=== PATIENT | male | born 1985 | race Caucasian/White ===

== ENCOUNTER 2025-06-26 13:40 | Emergency (ER) | payer BC, SELFPAY ==
--- OUTSIDE RECORDS SUMMARY | 2015-02-18 12:20 | XMS_ITS | Continuity of Care Document ---
Author Organization [facility] Address [address] [facility] [address] [place] [address] Phone Care Team Providers Care Day Treatment Clinician/Art Therapist Name Role Phone Payton Zuniga Unavailable Unavailable Procedures Procedure Date THERAPEUTIC EXERCISES MANUAL THERAPY FUNC ACTIVITY HOT/COLD PACK PT RE-EVALUATION THERAPEUTIC EXERCISES MANUAL THERAPY FUNC ACTIVITY HOT/COLD PACK THERAPEUTIC EXERCISES MANUAL THERAPY FUNC ACTIVITY HOT/COLD PACK PT EVALUATION THERAPEUTIC EXERCISES MANUAL THERAPY FUNC ACTIVITY HOT/COLD PACK Advance Directives Directive Yes / No Effective Date File Name No Information Encounters Encounter Description Practice Location Reason(s) For Visit Diagnoses Date Provider Providers Copied on Encounter [facility], [id number], tel:[phone] [facility] No Information Shamika Cain. [address] [facility] [address], [place], [facility] [place], [place]. tel:[phone] [facility], [address], [id number], tel:[phone] [facility] No Information Esperanza De La Rosa. [address] [facility] [address], [place], [facility] [place], [place]. tel:[phone], [place], [place], [id number], tel:[phone] [facility] No Information Archer Leana. [address] [facility], [place], [facility] [place], . tel:[phone], [place], [id number], tel:[phone] [facility] No Information Archer Leana. [address] [place] [address], [facility] [address], [place] [address], . tel:[phone], [place], [id number], tel:[phone] [facility] Lumbago Archer Leana. [address] [facility] [address], . tel:[phone] Family History Family Member Type Diagnosis Age At Onset No Information Payers Payer name Insurance type Covered libertarian ID Authoriza tion(s) [employer] SP [id number] Social History Type Description Quantity Date Captured Comments Sex Male Smoking Status No Information Chief Complaint And Reason For Visit No Information Reason For Referral Reason For Referral No Information History Of Present Illness Encounter Date Complaint History Of Prese nt Illness No Information Functional Status Date Functional Assessmen t No Information Instructions Date Instruction Additional Infor mation No Information Assessments Type Assessment Date No Information Patient Care Teams Name Effective Dates (start - stop) Status Members No Information
[2025-06-26 13:48] VITALS: BP 156/100; PULSE 110; RESP 20; TEMP 36.5; O2SAT 95
--- OUTSIDE RECORDS SUMMARY | 2025-06-26 14:20 | XMS_ITS | Clinical Summary ---
Author Organization [facility] Address [address] [place] [address] Care Team Providers Care Pharmacologist Name Role Phone Sylvia Hendrickson NP Primary Care Provider [phone] Allergies No known active allergies Medications cyclobenzaprine (FLEXERIL) 10 mg tablet Take 1 tablet (10 mg total) by mouth 3 (three) times a day as needed 5 Active ibuprofen (ADVIL,MOTRIN) 800 mg tablet Take 1 tablet (800 mg total) by mouth 2 (two) times a day 5 Active aspirin 325 mg enteric coated tablet Take 2 tablets (650 mg total) by mouth daily Active amLODIPine (NORVASC) 2.5 mg tablet Take 1 tablet (2.5 mg total) by mouth daily 30 tablet 1 4 Active Additional Information Patient not taking.Reported on 12/12/2023 losartan (COZAAR) 50 mg tablet Take 1 tablet (50 mg total) by mouth daily 90 tablet 3 4 Active Active Problems Problem Noted Date Diagnosed Date Hyperlipidemia 12/09/2023 Primary hypertension 11/22/2023 Assessment & Plan (11/22/2023 12:09 PM ADMINISTRATIVE MANAGER): BP elevated, likely contributing to symptoms to some degree. Start Amlodipine 2.5 mg daily, follow up in 4 weeks. Labs ordered. Chest pain 11/22/2023 Low back pain 02/22/2015 Immunizations Immunization Administration Dates Next Due Influenza, Unspecified 11/22/2023(Deferr ed: Patient Refused),09/23/2022(Deferred: Patient Refused) Social History Tobacco Use Types Packs/Day Years Used Date Smoking Tobacco: Former Cigarettes Tobacco Cessation:Counseling Given: Not Answered PHQ-2 Answer Date Recorded PHQ-2 Total Score (If total score is 3 or more points, staff should administer the PHQ-9) 0 11/22/2023 Sex and Gender Information Value Date Recorded Sex Assigned at Not on file Legal Sex Male 8:24 PM CDT Gender Identity Not on file Sexual Orientation Not on file Obstetrics History Last Filed Vital Signs Vital Sign Reading Time Taken Comments Blood Pressure 152/87 12/12/2023 11:28 AM CDT Pulse 94 12/12/2023 11:28 AM CDT Temperature 36.7 C (98 F) 11/22/2023 10:20 AM ADMINISTRATIVE MANAGER Respiratory Rate 18 12/12/2023 11:28 AM CDT Oxygen Saturation 98% 11/22/2023 10:20 AM ADMINISTRATIVE MANAGER Inhaled Oxygen Concentration - - Weight 137.4 kg (303 lb) 12/12/2023 11:28 AM CDT Height 185.4 cm (6' 1) 12/12/2023 11:28 AM CDT Body Mass Index 39.98 12/12/2023 11:28 AM CDT Plan of Treatment Health Maintenance Due Date Last Done Comments Hepatitis C Screening 1986 DTaP/Tdap/Td Vaccine (1 - Tdap) 1997 Varicella Vaccines (1 of 2 - 13+ 2-dose series) 1999 Hepatitis B Screening 2004 Regular Well Visit/Exam 18-64 2004 HPV Vaccines (1 - 3-dose SCD M series) 2013 Depression Screening 11/21/2024 11/22/2023 Influenza Vaccine (#1) 2025 Pneumococcal vaccine <65 Aged Out No longer eligible based on patient's age to complete this topic Insurance [employer] Care Teams Pharmacologist Relationship Specialty Start Date End Date Sylvia Hendrickson NP [address] [place] [address] PCP - General Family Medicine 11/22/23
--- OUTSIDE RECORDS SUMMARY | 2025-06-26 14:20 | XMS_ITS | Clinical Summary ---
Author Organization [facility] [address] Address [address] [place] [address] Phone Care Team Providers Care Senior Recruiter Name Role Phone Unavailable Primary Care Provider Unavailabl e Allergies No known active allergies Medications ibuprofen (MOTRIN) 800 mg tablet Take 1 Tab (800 mg) by mouth 2 times daily. 60 Tab 0 04/15/2015 Active cyclobenzaprine (FLEXERIL) 10 mg tablet Take 1 Tab (10 mg) by mouth 3 times daily as needed for Spasm. 30 Tab 0 04/15/2015 Active Active Problems Problem Noted Date Diagnosed Date Low back pain 02/22/2015 Family History Relation Name Status Comments Mother Alive Social History Tobacco Use Types Packs/Day Years Used Date Smoking Tobacco: Every Day Cigarettes Smokeless Tobacco: Never Alcohol Use Standard Drinks/Week Comments No 0 (1 standard drink = 0.6 oz pur e alcohol) Sex and Gender Information Value Date Recorded Sex Assigned at Not on file Legal Sex Male 3:03 PM CDT Gender Identity Not on file Sexual Orientation Not on file Last Filed Vital Signs Vital Sign Reading Time Taken Comments Blood Pressure 132/98 05/16/2015 2:23 PM CDT Pulse 119 05/16/2015 2:23 PM CDT Temperature - - Respiratory Rate 16 05/16/2015 2:23 PM CDT Oxygen Saturation - - Inhaled Oxygen Concentration - - Weight 120.2 kg (265 lb) 05/16/2015 2:23 PM CDT Height 185.4 cm (6' 1) 05/16/2015 2:23 PM CDT Body Mass Index 34.96 05/16/2015 2:23 PM CDT Plan of Treatment Health Maintenance Due Date Last Done Comments DTAP/TDAP/TD VACCINES (1 - Tdap) 2005 HEPATITIS B VACCINES (1 of 3 - 19+ 3-dose series) 03/23 HPV VACCINES (1 - 3-dose SCDM series) 2013 INFLUENZA VACCINE (#1) 2025
--- OUTSIDE RECORDS SUMMARY | 2025-06-26 14:20 | XMS_ITS | Clinical Summary ---
Author Organization [facility] Address [address] [place] [id number] Care Team Providers Care Packaging Inspector Name Role Phone Unavailable Primary Care Provider Unavailabl e Active Problems Problem Noted Date Diagnosed Date Low back pain 02/22/2015 Social History Tobacco Use Types Packs/Day Years Used Date Smoking Tobacco: Never Assessed Sex and Gender Information Value Date Recorded Sex Assigned at Not on file Legal Sex Male 11:31 AM CDT Gender Identity Not on file Sexual Orientation Not on file Plan of Treatment Health Maintenance Due Date Last Done Comments Annual Physical 1989 Hepatitis C 2004 DTaP, Tdap and Td Vaccines ( 1 - Tdap) 2005 Hepatitis B Vaccines (1 of 3 - 19+ 3-dose series) 2005 HPV Vaccines (1 - 3-dose SCD M series) 2013 COVID-19 Vaccine (2023-2 5 season) 2025 Meningococcal B Vaccine Aged Out No l onger eligible based on patient's age to complete this topic Meningococcal Vaccine Aged Out No shelley radha eligible based on patient's age to complete this topic Pneumococcal Vaccine: Pediat rics (0 to 5 Years) and At-Risk Patients (6 to 49 Years) Aged Out No longer eligible b ased on patient's age to complete this topic RSV Immunizations Under 20 Months Aged Out No longer eligible based on patient's age to complete this topic Insurance [facility]
[2025-06-26] MEDS: OFLOXACIN 0.3% OPHTH SOLN 5 ML BTL 2 DROP RIGHT EYE (15:17)
--- NOTE | 2025-06-26 15:34 | ED_ITS ---
HPI - Eye Problem General Chief complaint: Eye Problems Stated complaint: glass in right eye Time Seen by Provider: 06/26/25 14:06 Source: patient Mode of arrival: ambulatory Limitations: no limitations History of Present Illness HPI Narrative: Patient is a 40 y/o male who presents to the ED with c/o R eye FB. Patient reports he was cleaning something and a piece of glass fell off the top of the shelf and landed into his R eye. C/o pain and FB sensation in R eye, watery drainage. Did flush his eye for 30 minutes afterwards but still felt FB. Wears contacts, removed this prior to arrival. Denies any vision changes/loss, floaters, flashers. Related Data Allergies Allergy/AdvReac Type Severity Reaction Status Date / Time No Known Allergies Allergy Verified 06/26/25 13:52 Review of Systems Review of Systems: All systems reviewed & are unremarkable except as noted in HPI. All systems reviewed & are unremarkable except as noted in HPI and below Exam Narrative: GENERAL: Well appearing, well-nourished, non-toxic, in no acute distress. HEAD: Normocephalic, atraumatic. EYES: PERRL/EOMI, no pain with eye movements. L conjunctiva clear. R conjunctiva diffusely injected. Serous drainage from R eye. Some stringy thicker drainage along lower lid on R eye. No obvious glass FB RESPIRATORY: Airway patent, respirations nonlabored. CARDIOVASCULAR: Regular rate and rhythm MUSCULOSKELETAL: Moves all extremities. No gross deformities. SKIN: Warm, dry, normal color. NEURO: A&O X3. Speech clear. PSYCHIATRIC: Appropriate mood and affect. Normal interaction. Course Vital Signs Vital signs: Vital Signs Temperature 97.7 F 06/26/25 13:48 Pulse Rate 110 H 06/26/25 13:48 Respiratory Rate 20 06/26/25 13:48 Blood Pressure 156/100 H 06/26/25 13:48 Pulse Oximetry 95 06/26/25 13:48 Temperature 97.7 F 06/26/25 13:48 Pulse Rate 110 H 06/26/25 13:48 Respiratory Rate 20 06/26/25 13:48 Blood Pressure 156/100 H 06/26/25 13:48 Pulse Oximetry 95 06/26/25 13:48 MDM - Eye Problem MDM Narrative Medical decision making narrative: PERRL/EOMI. External exam with some thicker drainage along lower eyelid. This was removed with a cotton swab. Patient reported improvement of foreign body sensation after removal of this drainage. No obvious glass identified on exam. Patient is denying any vision changes. Visual acuity was decreased on right eye, however patient reported that he had removed his contact prior to arrival. Fluorescein staining with Wood's lamp examination was performed and did show small scattered conjunctival abrasions with a small circular corneal abrasion at the 5:00 oclock region. Patient started on ofloxacin eyedrops. Advised to follow-up with Ophthalmology for further evaluation. Given strict return precautions. He voiced understanding. Is feeling much better. Discharged in stable condition. Medical Records Attestation: I reviewed the patient's medical records. Discharge Plan Discharge Clinical Impression: Foreign body of right eye, Corneal abrasion Patient Disposition: Home Condition: Stable Instructions: Antibiotic Form, Corneal Abrasion (ED), Eye Foreign Body (ED) Additional Instructions: Utilize antibiotic eyedrops as prescribed. Avoid rubbing or touching eye. Avoid contact use until finished with antibiotics. Follow-up with Ophthalmology for further evaluation. Return to an ED if you experience worsening or severe symptoms, severe pain, vision changes, fevers, or any other symptoms of concern. Patient Language: Upper Sorbian Follow-up/Referrals: PHYSICIAN,CRANE LADLE PERSON [Primary Care Provider, Internal Medicine] Time of Disposition: 15:36
== END 2025-06-26 15:44 | disposition home or self-care (01) ==
PROVIDERS: Emergency Provider Physician Assistant
DX: T15.01XA Foreign body in cornea, right eye, initial encounter (principal)
CPT/HCPCS: 99283; A9270